=== PATIENT | male | born 1945 | race Caucasian/White ===

== ENCOUNTER 2016-12-12 22:39 | Emergency (ER) | payer MEDICARE, OTHER ==
[2016-12-12 22:37] LABS: WBC (NOT ORDERED) (RFLEX) 0 (0-5)
[2016-12-12 22:41] LABS: BASOPHILS 0.3 %; BASOPHILS ABSOLUTE 0.02 10/3/uL (0.0-0.16); EOSINOPHILS 1.3 %; EOSINOPHILS ABSOLUTE 0.09 10/3/uL (0.0-0.53); ER CBC TAT 0 Hrs 05 Mins; HEMATOCRIT 38.2 % (40.0-51.0); HEMOGLOBIN 13.2 g/dL (13.6-17.8); IMMATURE GRANULOCYTES 0.1 %; IMMATURE GRANULOCYTES ABSOLUTE 0.01 10/3/uL (0.0-0.11); LYMPHOCYTES ABSOLUTE 2.18 10/3/uL (0.67-4.30); MEAN CORPUS HGB CONC 34.6 g/dL (32.0-36.0); MEAN CORPUSCULAR HEMOGLOB 30.5 pg (26.0-34.0); MEAN CORPUSCULAR VOLUME 88.2 fL (80-100); MEAN PLATELET VOLUME 9.3 fL (9.2-13.0); MONOCYTES 10.1 %; MONOCYTES ABSOLUTE 0.71 10/3/uL (0.21-1.20); NEUTROPHILS 57.2 %; NEUTROPHILS ABSOLUTE 4.03 10/3/uL (2.02-8.40); PLATELET COUNT 153 10/3/uL (150-400); RED CELL COUNT 4.33 10/6/uL (4.7-6.1)
[2016-12-12 22:43] LABS: MANUAL DIFF NO %
[2016-12-12 22:48] LABS: ASCORBIC ACID (UR NOT ORDER) NEG (NEG); BILIRUBIN, URINE NEGATIVE (NEG); ER URINALYSIS TAT 0 Hrs 12 Mins; KETONE, URINE NEGATIVE (NEG); LEUKOCYTE ESTERASE(NOT OR NEG (NEG); NITRITE (URINE) NEG (NEG)
[2016-12-12 22:48] LABS: INTERNATIONAL NORMAL RATI 1.1 UNITS (-); PARTIAL THROMBO TIME 28.6 SEC (22.5-37.2); PROTIME (NOT ORD) 13.9 SEC (12.0-14.5)
[2016-12-12 23:11] LABS: AMPHETAMINES (NOT ORD) NEG (NEG); BARBITURATES (NOT ORDERED NEG (NEG); BENZODIAZEPINES (NOT ORD) NEG (NEG); CANNABINOIDS (THC) NEG (NEG); COCAINE (NOT ORDERED) NEG (NEG); OPIATES NEG (NEG); PHENCYCLIDINE(PCP) NEG (NEG); TRICYCLICS NEG (NEG)
[2016-12-12 23:26] LABS: ACETAMINOPHEN LEVEL (TYLENOL) 2.9 MCG/ML (10.0-20.0); ALCOHOL < 10 MG/DL (0); BUN (BLOOD UREA NITROGEN) 13 MG/DL (6-23); CALCIUM, SERUM 9.2 MG/DL (8.5-10.4); CHEST PAIN PROFILE TAT 0 Hrs 50 Mins; CHLORIDE, SERUM 102 MMOL/L (96-112); CO2 (CARBON DIOXIDE) 27 MMOL/L (24-34); DEPAKENE (VALPROIC ACID) 40.5 MCG/ML (50.0-100.0); GFR AFRICAN AMERICAN 87 ML/MIN (>=60); GFR NON AFRICAN AMERICAN 75 ML/MIN (>=60); GLUCOSE, SERUM 134 MG/DL (60-99); SALICYLATE < 1.7 MG/DL (-); SODIUM, SERUM 139 MMOL/L (135-148); TROPONIN I <0.02 NG/ML (<0.05)
[2016-12-12 23:29] LABS: BASOPHILS 2 %; BASOPHILS ABSOLUTE (CALC) 0.14 10/3/uL (0.0-0.16); EOSINOPHILS 3 %; EOSINOPHILS ABSOLUTE (CALC) 0.21 10/3/uL (0.0-0.53); ER DIFF TAT 0 Hrs 53 Mins; LYMPHOCYTES 27 %; LYMPHOCYTES ABSOLUTE (CALC) 1.89 10/3/uL (0.67-4.30); MONOCYTES 10 %; NEUTROPHILS ABSOLUTE (CALC) 4.06 10/3/uL (2.02-8.40); PLATELET ESTIMATE ADQ (ADEQUATE); RBC MORPHOLOGY NORM (NORMAL); SEGMENTED NEUTROPHIL (0) 58 %; TOTAL NUCLEATED CELLS 100
[2016-12-13] MEDS ORDERED: PROZAC PO (02:37)
[2016-12-13] MEDS ORDERED: FORTAMET500 MG PO (02:38)
[2016-12-13] MEDS ORDERED: KLOR-CON 1010 MEQ PO (02:39)
[2016-12-13] MEDS ORDERED: CITRACAL PO (02:40)
[2016-12-13] MEDS ORDERED: MULTIVITAMI1 PO (02:40)
[2016-12-13] MEDS ORDERED: NIASPAN500 PO (02:41)
[2016-12-13] MEDS ORDERED: DSS PO (02:42)
[2016-12-13] MEDS ORDERED: PRIN10 PO (02:42)
[2016-12-13] MEDS ORDERED: SYN.05 PO (02:43)
[2016-12-13] MEDS ORDERED: HALF81 PO (02:44)
[2016-12-13] MEDS ORDERED: [UNRECOGNIZED DRUG - SUPPLY] (02:45)
[2016-12-13] MEDS ORDERED: PRILO (02:46)
[2016-12-13] MEDS ORDERED: METHAZOLAMID50 MG PO (02:46)
[2016-12-13] MEDS ORDERED: [UNRECOGNIZED DRUG - OTHER] OT (02:48)
[2016-12-13] MEDS ORDERED: XALAT OPH (02:49)
[2016-12-13] MEDS ORDERED: DORZOL/TIMOL1 ML OPH (02:50)
[2016-12-13] MEDS ORDERED: BRIMONIDINE0.2 % OPH (02:50)
[2016-12-13] MEDS ORDERED: MELA3 PO (02:51)
[2016-12-13] MEDS ORDERED: DEPAKOTEER (02:51)
[2016-12-13] MEDS ORDERED: RISP4 (02:52)
[2016-12-13] MEDS ORDERED: 8 HOUR650 MG PO (02:53)
[2016-12-13] MEDS ORDERED: FLOMAX4 PO (02:53)
[2016-12-13] MEDS ORDERED: DITROPAN XL10 MG PO (02:55)
== END 2016-12-13 04:15 | disposition home or self-care (01) ==
LOC: ER 22:39
PROVIDERS: Nurse Practitioner
DX: F41.9 Anxiety disorder, unspecified (principal); R45.851 Suicidal ideations; R44.0 Auditory hallucinations; I10 Essential (primary) hypertension; E11.9 Type 2 diabetes mellitus without complications; F31.9 Bipolar disorder, unspecified; Z79.84 Long term (current) use of oral hypoglycemic drugs; Z79.82 Long term (current) use of aspirin; Z79.899 Other long term (current) drug therapy
CPT/HCPCS: 80048; 80164; 80305; 80307; 81001; 83735; 84443; 84484; 85025; 85610; 85730; 93005; 99285